=== PATIENT | male | born 1945 | race Caucasian/White ===

== ENCOUNTER → 2019-02-16 10:49 | Outpatient (BNVA) | payer MEDICARE, SELFPAY | PROVIDERS: Family Provider Nurse Practitioner Family; PCP Nurse Practitioner Family; Visit Provider Nurse Practitioner Family | DX: E11.9 Type 2 diabetes mellitus without complications (principal); R79.0 Abnormal level of blood mineral | CPT/HCPCS: 80053; 80061; 83036; 83735; 85025 ==

== ENCOUNTER 2019-07-24 19:37 | Emergency (ER) | payer MEDICARE, SELFPAY ==
[2019-07-24 20:00] VITALS: BP 112/66; PULSE 104; RESP 18; TEMP 36.4; O2SAT 93; BMI 34.9
[2019-07-24 21:28] VITALS: BP 125/69; PULSE 92; RESP 18; O2SAT 96
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
[2019-07-24] MEDS: dexamethasone 4 mg Tablet 8 MG PO (21:45)
[2019-07-24] MEDS: doxycycline 100 mg Tablet PO (21:45)
[2019-07-24 21:51] LABS: Basophils # 0.1 10^3/uL (0.0-0.1); Basophils % 0.5 %; Eosinophils # 0.8 10^3/uL (0.0-0.8); Eosinophils % 8.3 %; Hematocrit 39.7 % (42.0-52.0); Hemoglobin 12.5 g/dL (11.7-16.6); Lymphocytes # 2.6 10^3/uL (0.8-4.8); Lymphocytes % 28.7 %; Mean Corpuscular HGB Conc 31.5 g/dL (30.0-36.0); Mean Corpuscular Hemoglobin 30.6 pg (28.0-34.0); Mean Corpuscular Volume 97.1 fL (80-94); Mean Platelet Volume 9.8 fL (7.4-10.4); Monocytes % 11.3 %; Neutrophils # 4.6 10^3/uL (1.8-7.7); Neutrophils % 50.8 %; Nucleated Red Blood Cells % 0 %; Platelet Count 325 10^3/cmm (130-400); Red Blood Count 4.09 10^6/uL (4.1-5.3); Red Cell Distribution Width 13.2 % (12.1-15.1); White Blood Count 9.1 10^3/uL (4.0-10.0)
[2019-07-24 21:56] VITALS: BP 127/77; PULSE 88; RESP 18; O2SAT 94
[2019-07-27 13:47] LABS: Lyme AB Screen <0.90 index
[2019-08-02 06:53] LABS: E. Chaffeensis AB IGG <1:64; E. Chaffeensis AB IGM <1:20; RMSF IGG DETECTED; RMSF IGM NOT DETECTED
== END 2019-07-24 21:58 | disposition home or self-care (01) ==
PROVIDERS: Emergency Provider Emergency Medicine; PCP Nurse Practitioner Family
DX: S90.465A Insect bite (nonvenomous), left lesser toe(s), initial encounter (principal); W57.XXXA Bitten or stung by nonvenomous insect and other nonvenomous arthropods, initial encounter; Z79.82 Long term (current) use of aspirin; E11.9 Type 2 diabetes mellitus without complications; I10 Essential (primary) hypertension; E78.2 Mixed hyperlipidemia
CPT/HCPCS: 12345; 85025; 86618; 86666; 86757; 99282; 99283; J8540

== ENCOUNTER → 2020-10-08 13:26 | Outpatient (BNVA) | payer MEDICARE, SELFPAY | PROVIDERS: PCP Nurse Practitioner Family; Visit Provider Internal Medicine | DX: Z01.812 Encounter for preprocedural laboratory examination (principal); Z20.822 Contact with and (suspected) exposure to COVID-19 | CPT/HCPCS: 87635 ==

== ENCOUNTER 2020-10-12 07:48 | Day surgery (SDC) | payer MEDICARE, SELFPAY ==
[2020-10-09 14:22] VITALS: BMI 25.0
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
[2020-10-12 08:45] VITALS: BP 109/76; PULSE 93; RESP 18; TEMP 36.3; O2SAT 96
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
[2020-10-12] MEDS: sodium chloride 0.9% 1,000 ML 30 ML IV (09:22)
[2020-10-12 10:08] VITALS: BP 116/73; PULSE 104; RESP 18; TEMP 36.6; O2SAT 94
--- NOTE | 2020-10-12 10:30 | CT_ITS ---
WS: [id number] CT CHEST, ABDOMEN AND PELVIS WITH CONTRAST HISTORY: GE JUNCTION MASS TECHNIQUE: Contiguous 5 mm axial imaging performed through the chest, abdomen and pelvis with IV cont rast, oral contrast has been provided. Coronal and sagittal reformats chest. Coronal and sagittal ref ormats through the abdomen and pelvis. All CT scans at [facility] use at least one of these d ose optimization techniques: automated exposure control; mA and/or kV adjustment per patient size (in cludes targeted exams where dose is matched to clinical indication); or iterative reconstruction. CONTRAST: Omnipaque 300; 95 mL IV. DLP: 1333.07 mGy.cm COMPARISON: None available. Chest CT: No pneumonia or pulmonary nodules. There are a few micronodules which are less than 3 mm th roughout the lungs. These are very nonspecific and likely postinflammatory. Normal size pulmonary art erendira. Mild atherosclerosis of the aorta. Focal area of distal esophageal wall thickening extends over length of 3.7 cm. This begins below the karl. Asymmetric wall thickening, greatest on the LEFT mauri uring 2.0 cm in diameter. The lumen is narrowed and eccentrically positioned but not obstructed. Ther e are a few adjacent mediastinal and hilar lymph nodes which are less than 10 mm. 10 mm RIGHT axillar y lymph node. Abdomen CT: Liver is normal size. Normal bile ducts. Portal vein is patent. Gallbladder is normal. No rmal pancreas and spleen. No adrenal mass. There is mild hyperplasia of the LEFT adrenal gland. No re nal mass or obstruction. Mild atherosclerosis aorta with no aneurysm. Increased air throughout the colon is probably from a recent colonoscopy. No wall thickening or perfo ration. Normal appendix. Mild asymmetric thickening of the rectal wall. There is soft tissue thickeni ng on the LEFT measuring up to 1.5 cm. No ascites or enlarged lymph nodes. There are a few very small shoddy lymph nodes at the GE junction which are less than a centimeter. Pelvic CT: Well-distended urinary bladder. Mild prostate gland enlargement. No adenopathy in the pelv is. No free fluid. No inguinal lymph nodes. No osteoblastic or osteolytic bone disease. Prior fracture with healing LEFT inferior pubic rami. CT/CT chest abd pel w con* IMPRESSION: 1. Distal esophageal wall thickening highly suspicious for neoplasm. Esophagea l abnormality extends over a length of 3.7 cm with eccentric thickening of the wall greatest on the LEFT at 2.0 cm. 2. Eccentric rectal wall thickening, greatest on the LEFT measuring up to 1.5 cm. Correlate for possible rectal mass. 3. No metastatic disease to the liver, adrenal glands or lungs. 4. There are a few mildly prominent lymph nodes within the mediastinum and GI junction but these are not significantly enlarged as per criteria.
[2020-10-12 11:09] VITALS: BP 134/85; PULSE 91; RESP 16; O2SAT 97
[2020-10-12] MEDS: iohexol 300 mg/mL 50 mL Btl PO (11:11)
--- NOTE | 2020-10-12 11:15 | USCV_ITS ---
Kathya Wu Age: 75 Gender: M : 1945 Exam Date: 10/12/2020 11:24 Ordering Phys: Luis Barraza MD Technologist: Cookie Robertson [place] [facility] [place]ication: GI VEIN ACCESS Conclusions Bilateral UE Ultrasound for venous access Molina Tinoco MD (Electronically Signed) Final Date: 17 October 2020 09:59 S
[2020-10-12] MEDS: iodixanol 320 mg/mL 100mL Btl IV (12:20)
--- NOTE | 2020-10-12 15:57 | ANE.PACU2 ---
Inpatient post-anesthesia follow up: Airway intact: Yes Vital signs: Temperature 98 F Pulse Rate 91 Respiratory Rate 16 Blood Pressure 134/85 Pulse Oximetry 97 Oxygen Delivery Me thod Room Air Oxygen Flow Rate Fraction of Inspir ed Oxygen Hydration adequate: Yes Nausea and vomiting: No Pain level: 2 Mental status: Baseline
[2020-10-14 07:56] LABS: Glucose Point of Care 99 mg/dL (70-110)
[2020-10-22 07:02] LABS: Miscellaneous Test See Scanned Lab Rpt
== END 2020-10-12 12:46 | disposition home or self-care (01) ==
PROVIDERS: PCP Nurse Practitioner Family; Visit Provider Internal Medicine
PROC: 0DJ08ZZ Inspection of Upper Intestinal Tract, Via Natural or Artificial Opening Endoscopic (ICD-10-PCS; CPT 43235; principal; 2020-10-12 09:00)
DX: R13.10 Dysphagia, unspecified (principal); Z79.82 Long term (current) use of aspirin; E11.649 Type 2 diabetes mellitus with hypoglycemia without coma; I10 Essential (primary) hypertension; E78.2 Mixed hyperlipidemia; E11.40 Type 2 diabetes mellitus with diabetic neuropathy, unspecified; Z87.11 Personal history of peptic ulcer disease; Z98.1 Arthrodesis status; Z87.891 Personal history of nicotine dependence
CPT/HCPCS: 36416; 43239; 71260; 74177; 76937; 76942; 82962; 88305; 96360; 96361; J2704; J7030; Q9967

== ENCOUNTER 2020-10-22 13:59 | Outpatient (CLI) | payer MEDICARE, SELFPAY ==
--- NOTE | 2020-10-22 16:58 | ONC CON_ITS ---
Dr. Mirza New Patient Note Patient: Kathya Wu Unit #: [id number]: 1945 Dicatated By: Khloe Mirza M.D.Date of Visit: Oct 22, 2020 Onc MED New Patient/Consult Referring Physician: Dr. Efrain Barraza M.D. History of Present Illness: Mr. Kathya Wu, is a 75-year-old gentleman with about 2 months history of progressive dysphagia, underwent EGD on October 12, 2020 which showed at the esophageal cardia, is severe, malignant appearing, intrinsic stenosis noted, the stenosis was not traversed. A partially obstructing, large sized, friable, fungating, circumferential ulcerated mass was seen and a biopsy was obtained which confirmed invasive squamous cell carcinoma, patient underwent CT scan of chest abdomen pelvis on October 12, 2020 which showed distal esophageal wall thickening highly suspicious for neoplasm. And this extends over the length of 3.7 cm with eccentric thickening of the wall greatest on the left at 2 cm. And also noted eccentric rectal wall thickening, greatest on the left measuring up to 1.5 cm. Correlate for possible rectal mass, no metastatic disease to the liver or adrenal gland or lungs. There are few mildly prominent lymph nodes within the mediastinum and GE junction but these are not significantly enlarged as per the criteria. As per patient he underwent colonoscopy in 2018, it was unremarkable Patient has 40+ year history of smoking about pack a day and quit about 10 years ago patient also has history of alcohol abuse and now follow alcohol [employer], quit alcohol about 4 years ago No family history of GI malignancy. Patient also has history of iron deficiency in the recent past as per patient he was prescribed oral iron, which he could not tolerate and stopped taking. Patient denies any hemoptysis or hematemesis, denies any melena or hematochezia except history of dark-colored stools when he was on oral iron. Denies any history of jaundice denies any history of aspirations, denies any history of aspiration pneumonia. Denies any history of progressive shortness of breath. But patient said he has lost about 20 pounds over the. Of 2 months because of progressive dysphagia and now can tolerate liquids only and his past medical history significant for diabetes and he is on Metformin for that. Past Medical History: Mr. Hines medical history consists of acquired deformity of right wrist, calcific tendonitis of left shoulder, cervical disc disorder with myelopathy of mid cervical regio, hyperlipidemia, hypertension, lumbar spinal stenosis, peptic ulcer disease, peripheral neuropathy, and type II diabetes. COVID VACCINE #1 04/2020, VACCINE #2 05/2020. Past Surgical History: Mr. Hines surgical/procedural history consists of cervical spine surgery C3-C4 in 2016, right carpal tunnel release in 2016, left arm surgery in 1971, and right wrist surgery in 1971. Medications: A Thru Z Advanced 1 Tablet Oral daily, Alph-E 1 Capsule (of 400 Unit(s)) Oral daily, Aspirin 81 1 Tablet (of 81 mg) Tablet, chewable Oral daily, Atorvastatin Calcium 1 Tablet (of 20 mg) Oral daily, Cholecalciferol 1 Capsule (of 25 mcg ) Oral daily, Gabapentin 1 Capsule (of 100 mg) Oral b.i.d., glipiZIDE ER 1 Tablet (of 2.5 mg) Tablet SR 24 HR Oral daily, Glucophage 1 Tablet (of 1000 mg) Oral b.i.d., Lisinopril-hydroCHLOROthiazide 1 Tablet (of 20-12.5 mg) Oral daily, Magnesium 1 Tablet (of 250 mg) Oral b.i.d., Pantoprazole Sodium 1 Tablet (of 40 mg) Tablet, enteric coated Oral daily, traMADol HCl 1 Tablet (of 50 mg) Oral PRN, Zofran ODT 1 Tablet (of 8 mg) Tablet Dispersable Oral PRN Allergies: No Known Allergies. Social History: Mr. Wu is . Mr. Wu has never smoked. He has no history of drinking. Family History: Mr. Dunns mother at age 98. Mr. Wu's father at age 73. Mr. Wu has 1 brother who is . He has 1 sister who is . Review Of Symptoms: Review of Systems is not available for this patient. Vital Signs: Performed on Oct 22, 2020 15:15: 2, 24.37, 1.82 sq.m, 67 in, 95 % (LOW), 85 /min, 18 /min, 102/65 mm(hg), 97.0 F (LOW), and 155.6 lbs (HIGH). Performance Status: 0 - Fully active, able to carry on all predisease activities without restrictions. (ECOG) Physical Examination: ENMT - No mouth sores, no thrush, no jaundice no cervical or supraclavicular lymphadenopathy, Respiratory - Lungs are clear to auscultation, Cardiovascular - Regular rate and rhythm of heart, Abdomen - Soft, bowel sounds present, Extremities - No visible edema or rash. Lab/Imaging: Most recent lab results are not available for this patient. 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 Eccentric rectal wall thickening, greatest on the left measuring 1.5 cm, correlate for possible rectal mass. No metastatic disease to the liver or lungs or adrenal gland. There are a few mildly prominent lymph nodes within the mediastinum and GE junction but these are not significantly enlarged as per criteria. Progressive dysphagia/weight loss, scan due to above Diabetes, on oral hypoglycemic 40+ year history of heavy smoking, at least 1 pack/day, quit about 10 years ago. History of alcohol abuse, quit 4 years ago now follow alcohol Anonymous Plan: Discussed with patient regarding his EGD report and pathology which showed invasive squamous cell carcinoma involving distal esophageal area and patient is symptomatic due to progressive dysphagia, now J-tube is under consideration, patient is scheduled to see Dr. Lee in the morning., His CT scan of chest abdomen pelvis showed distal esophageal wall thickening and there are few mildly prominent lymph nodes in mediastinum and GE junction but these are not significantly large as per criteria but no evidence of metastatic disease to the liver or adrenal gland or lungs but there is a concern about rectal mass/wall thickening, as per patient he had follow-up colonoscopy done in 2018 and he was told it was unremarkable. So we will request Dr. Barraza to consider hydrogen limited colonoscopy or sigmoidoscopy or proctoscopy and correlate with CT scan of abdomen pelvis done on October 12, 2020.And also request surgery for Port-A-Cath placement to facilitate systemic therapy We will also order CT PET scan to complete staging work-up and if it shows no evidence of distant mets, will consider neoadjuvant therapy with combined chemoradiation with weekly carboplatin/Taxol followed by referrel to surgery for evaluation. We will also obtain baseline CBC and CMP, as per patient he has history of iron deficiency anemia, if he has persistent iron deficiency anemia will consider parenteral iron. Patient will return to clinic after follow-up CT PET scan in the meantime we will also refer him to radiation oncology for evaluation. Signed By: Khloe Mirza M.D. <<Signature on File>>
== END 2020-10-22 14:00 | disposition home or self-care (01) ==
LOC: ONCMED 14:07
PROVIDERS: PCP Nurse Practitioner Family; Visit Provider Internal Medicine Hematology & Oncology
DX: C15.5 Malignant neoplasm of lower third of esophagus (principal); R13.10 Dysphagia, unspecified; Z87.891 Personal history of nicotine dependence; E11.9 Type 2 diabetes mellitus without complications; Z79.82 Long term (current) use of aspirin; Z79.899 Other long term (current) drug therapy; Z79.84 Long term (current) use of oral hypoglycemic drugs
CPT/HCPCS: 99205

== ENCOUNTER 2020-10-23 09:17 | Outpatient (CLI) | payer MEDICARE, SELFPAY ==
[2020-10-23 15:24] LABS: Basophils # 0.1 10^3/uL (0.0-0.1); Basophils % 0.6 %; Eosinophils # 0.4 10^3/uL (0.0-0.8); Eosinophils % 3.1 %; Hematocrit 34.1 % (42.0-52.0); Hemoglobin 10.7 g/dL (11.7-16.6); Lymphocytes # 2.3 10^3/uL (0.8-4.8); Lymphocytes % 19.8 %; Mean Corpuscular HGB Conc 31.4 g/dL (30.0-36.0); Mean Corpuscular Hemoglobin 28.1 pg (28.0-34.0); Mean Corpuscular Volume 89.5 fl (80-94); Mean Platelet Volume 9.9 fL (7.4-10.4); Monocytes % 8.4 %; Neutrophils # 7.98 10^3/uL (1.8-7.7); Neutrophils % 67.7 %; Nucleated Red Blood Cells % 0 %; Platelet Count 552 10^3/cmm (130-400); Red Blood Count 3.81 10^6/uL (4.1-5.3); Red Cell Distribution Width 13.7 % (12.1-15.1); White Blood Count 11.8 10^3/uL (4.0-10.0)
[2020-10-23 15:58] LABS: Albumin Level 4.2 g/dL (3.5-5.2); Alkaline Phosphatase 75 IU/L (40-130); Chloride 91 mmol/L (98-107); Potassium 5.7 mmol/L (3.5-5.1); Sodium 128 mmol/L (136-145)
[2020-10-23 16:19] LABS: Alanine Aminotransferase 7 U/L (0-41); Anion Gap 19.7 (5-19); Aspartate Amino Transferase 12 U/L (0-40); Blood Urea Nitrogen 24 mg/dL (8-23); Calcium 9.6 mg/dL (8.5-10.5); Carbon Dioxide 23 mmol/L (22-29); Globulin 2.8 g/dL (1.3-4.6); Glucose 80 mg/dL (65-115); Osmolality Calculated 269 mOsm/kg (285-295); Total Bilirubin 0.3 mg/dL (0.15-1.2)
[2020-10-23 17:17] LABS: Ferritin 259 ng/mL (30-400); Iron 33 ug/dL (59-158); Percent Saturation 11.3 % (20-50); Total Iron Binding Capacity 292 mcg/dl; Unsaturated Iron Binding 259 ug/dL (112-347); Vitamin B12 1941 pg/mL (232-1245)
== END 2020-10-23 09:18 | disposition home or self-care (01) ==
LOC: ONCMED 09:40
PROVIDERS: PCP Nurse Practitioner Family; Visit Provider Internal Medicine Hematology & Oncology
DX: D50.9 Iron deficiency anemia, unspecified (principal); C15.5 Malignant neoplasm of lower third of esophagus; E11.9 Type 2 diabetes mellitus without complications
CPT/HCPCS: 36415; 80053; 82607; 82728; 83540; 83550; 85025

== ENCOUNTER → 2020-10-26 10:07 | Outpatient (BNVA) | payer MEDICARE, SELFPAY | PROVIDERS: PCP Nurse Practitioner Family; Visit Provider Surgery | DX: Z20.822 Contact with and (suspected) exposure to COVID-19 (principal) | CPT/HCPCS: 87635 ==

== ENCOUNTER 2020-10-31 11:39 | Day surgery (SDC) | payer MEDICARE, SELFPAY ==
[2020-10-30 13:28] VITALS: BMI 23.6
--- NOTE | 2020-10-31 | SCC_ITS ---
Procedure Done: 1. Flexible sigmoidoscopy without biopsy 2. Placement of PowerPort in the left subclavian vein 3. Fluoroscopic guidance and interpretation for placement of catheter - seconds of fluoroscopic guidance, for a cumulative dose of 3.61 mGy, was provided to Dr. Lee by the radiology department. C-arm images of the chest were saved for the patient's permanent record. [facility]
--- NOTE | 2020-10-31 11:33 | W.PM.OPSUD ---
Surgery/Procedure H&P Update DATE OF PROCEDURE: October 31, 2020 DATE H&P PERFORMED: 10/23/20 H&P UPDATE INFORMATION: I have reviewed H&P completed within last 30 days, I have examined patient prior to procedure and No changes to prior documentation PREOP DIAGNOSIS: dysphagia PLANNED PROCEDURE: Operation Date: 10/31/20 14:15 Proposed Procedures p Sigmoidoscopy 30301 [id number] K62.9 C15.4(Not Applicable) - Yrn Lee MD s Portacath Placement(Not Applicable) - Yrn Lee MD
[2020-10-31 12:21] VITALS: BP 107/60; PULSE 75; RESP 18; TEMP 36.5; O2SAT 95
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
--- NOTE | 2020-10-31 12:39 | SC_ITS ---
WS: [id number] INTRAOPERATIVE TECHNIQUE: 3 Spot fluoroscopic images for intraoperative purposes. FLUOROSCOPY TIME: 24.9 seconds CLINICAL INFORMATION: portacath placement COMPARISON: None. FINDINGS: Left Port-A-Cath with tip in the SVC. No visualized pneumothorax. SC/C-arm FL for CVA [id number] IMPRESSION: Images obtained for intraoperative purposes.
[2020-10-31 12:48] LABS: Glucose Point of Care 87 mg/dL (70-110)
[2020-10-31] MEDS: sodium chloride 0.9% 1,000 ML 30 ML IV (12:49)
[2020-10-31] MEDS: lidocaine 1% INJ 20 mL SUBCUT (13:30)
[2020-10-31] MEDS: heparin, porcine 1,000 unit/mL INJ 10 mL 10000 UNIT INJECTION (13:30)
[2020-10-31 13:54] VITALS: BP 92/53; PULSE 80; RESP 20; TEMP 36.1; O2SAT 93
[2020-10-31 14:00] VITALS: BP 90/65; PULSE 76; RESP 17; O2SAT 95
--- NOTE | 2020-10-31 14:03 | ANE.PACU2 ---
Inpatient post-anesthesia follow up: Airway intact: Yes Vital signs: Temperature 97.7 F Pulse Rate 75 Respiratory Rate 18 Blood Pressure 107/60 Pulse Oximetry 95 Oxygen Delivery Me thod Room Air Oxygen Flow Rate Fraction of Inspir ed Oxygen Hydration adequate: Yes Nausea and vomiting: No Pain level: 2 Mental status: Baseline
[2020-10-31 14:05] VITALS: BP 91/60; PULSE 71; RESP 17; TEMP 36.6; O2SAT 92
[2020-10-31 14:08] VITALS: BP 89/42; PULSE 74; RESP 18; O2SAT 97
--- NOTE | 2020-10-31 14:09 | PM.OP ---
Operative Report Date of procedure: October 31, 2020 Pre-op Diagnosis: 1. Rectal wall thickening on CT scan 2. Esophageal cancer requiring central venous access for chemotherapy Post-op Diagnosis: 1. Diverticulosis sigmoid colon, no rectal masses 2. Esophageal cancer requiring central venous access for chemotherapy Procedure Done: 1. Flexible sigmoidoscopy without biopsy 2. Placement of PowerPort in the left subclavian vein 3. Fluoroscopic guidance and interpretation for placement of catheter Pathology: none sent Surgeon: Yrn Lee Anesthesia: General Condition: stable Disposition: PACU Procedure: The patient was taken to the operating room and placed in left lateral position under MAC. JOANNA was normal. A colonoscope was introduced and advanced up to the splenic flexure. There was mild diverticulosis noted in the sigmoid colon. There were no masses noted in the rectum. The colonoscope was withdrawn. The patient was taken to the Operating Room and the chest and neck bilaterally were prepped and draped in a sterile manner after the antibiotic had been administered and shoulder rolls had been placed. A total of 10 mL of 1% lidocaine with 0.5% Marcaine was infiltrated under the clavicle on the left side at the site of the planned entry into the subclavian vein. An introducer needle was then used to access the subclavian vein under the clavicle and after withdrawing blood syringe was removed and a guidewire passed under fluoroscopy into the superior vena cava. The site of the planned port was then marked on the chest and a 15 blade was used to make a 3 cm skin incision this was extended into the subcutaneous tissue using electrocautery and a subcutaneous pocket over the pectoralis fascia was created 2-0 Vicryl suture was used to suture the port to the pectoral fascia in the pocket on 3 sides. The catheter, after having been flushed with hep saline, was attached to the tunneler and a tunnel created between the port site and the subclavian vein entry site. Under fluoroscopy the dilator sheath was passed over the guidewire into the proximal superior vena cava. The inner dilator was removed and the sheath left behind and~ the catheter was introduced through the peel-away sheath with the tip in the superior vena cava. The peel-away sheath was removed. The proximal end of the catheter was cut to the right size and was attached to the port. Using a Sevilla needle the port was accessed, it withdrew blood easily and flushed easily. A final 5cc of heparin was used to flush the PowerPort. The subcutaneous tissue was approximated using interrupted 3-0 Vicryl sutures and the skin at the introducer site and the port site was closed using subcuticular running 4-0 Monocryl sutures. Surgical glue was applied and the patient was stable throughout the procedure. Fluoroscopic guidance and interpretation was performed for introduction of the guidewire in the left subclavian vein, passage of dilator and placement of catheter tip in the distal superior vena cava.
[2020-10-31 14:31] VITALS: BP 98/56; PULSE 75; RESP 18; O2SAT 95
== END 2020-10-31 14:44 | disposition home or self-care (01) ==
PROVIDERS: PCP Nurse Practitioner Family; Visit Provider Surgery
PROC: 0DJD8ZZ Inspection of Lower Intestinal Tract, Via Natural or Artificial Opening Endoscopic (ICD-10-PCS; CPT 45330; principal; 2020-10-31 14:10)
PROC: (CPT 36561; 2020-10-31 14:10)
DX: R93.3 Abnormal findings on diagnostic imaging of other parts of digestive tract (principal); C15.9 Malignant neoplasm of esophagus, unspecified; K57.30 Diverticulosis of large intestine without perforation or abscess without bleeding; I10 Essential (primary) hypertension; K21.9 Gastro-esophageal reflux disease without esophagitis; M19.90 Unspecified osteoarthritis, unspecified site; E11.649 Type 2 diabetes mellitus with hypoglycemia without coma; E78.2 Mixed hyperlipidemia; E11.40 Type 2 diabetes mellitus with diabetic neuropathy, unspecified; Z87.11 Personal history of peptic ulcer disease; Z98.1 Arthrodesis status; Z87.891 Personal history of nicotine dependence; Z79.84 Long term (current) use of oral hypoglycemic drugs; E46 Unspecified protein-calorie malnutrition; Z68.23 Body mass index [BMI] 23.0-23.9, adult
CPT/HCPCS: 36561; 45330; 36416; 77001; 82962; C1788; J0690; J1644; J2704; J3010; J3490; J7030

== ENCOUNTER 2020-11-14 08:32 | Outpatient (CLI) | payer MEDICARE, SELFPAY ==
--- NOTE | 2020-11-14 09:54 | N.ONRAD NP_ITS ---
Radiation Oncology Consultation Patient Name: Kathya Wu Date of : 1945 Date of Service: 11/14/2020 Attending Physician: Esvin Patel M.D. Kathya Wu was seen in consultation this morning at the request of Amna Mirza M.D. for neoadjuvant radiotherapy for the management of a recently diagnosed distal esophageal cancer. He presented to his primary care physician in September with the complaint of dysphagia and a 20 pound weight loss. An esophagogastroduodenoscopy was performed by Luis Barraza M.D on October 12, 2020. A malignant appearing stricture was identified at the esophageal cardia. 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 A thoracoabdominopelvic CT scan ordered on October 12, 2020 demonstrated distal esophageal wall thickening extending 3.7 cm in length with eccentric thickening of the left esophageal wall measuring 2 cm. Also described was asymmetric rectal wall thickening. A sigmoidoscopy did not identify any abnormalities. A PET CT (independently visualized in [facility]) completed on November 10, 2020 revealed the previously described distal thoracic esophageal mass (SUV 17.9) and two hypermetabolic lesions in the right ischium and left proximal femur. I will order a biopsy to confirm metastatic disease with treatment recommendations contingent upon the results. The patient's treatment plan was discussed with Amna Mirza M.D. Signed by: Dr. Esvin Patel 11/14/2020 9:53:17 AM
== END 2020-11-14 08:33 | disposition home or self-care (01) ==
LOC: ONCMED 08:35
PROVIDERS: PCP Nurse Practitioner Family; Visit Provider Radiology Radiation Oncology
DX: C15.5 Malignant neoplasm of lower third of esophagus (principal); R13.19 Other dysphagia; R63.4 Abnormal weight loss; Z79.899 Other long term (current) drug therapy
CPT/HCPCS: 99205

== ENCOUNTER 2020-11-16 10:32 | Inpatient (IN) | payer MEDICARE, SELFPAY ==
[2020-11-16 10:48] VITALS: BP 101/65; PULSE 92; RESP 15; O2SAT 95; BMI 24.3
--- NOTE | 2020-11-16 11:39 | CT_ITS ---
WS: [id number] CT CHEST, ABDOMEN, AND PELVIS TECHNIQUE: Contrast-enhanced CT of the chest, abdomen, and pelvis with coronal and sagittal reformatt ed images. CLINICAL INFORMATION: hx esophogeal mass, dysphagia COMPARISON: PET/CT November 10, 2020 DLP: 1142.[address] scans at [facility] use at least one of these dose optimization techniques: automated e xposure control; mA and/or kV adjustment per patient size (includes targeted exams where dose is matc hed to clinical indication); or iterative reconstruction. CT CHEST: Again seen is diffuse circumferential thickening of the distal thoracic esophagus compatible with kno wn FDG avid esophageal carcinoma as seen on the recent PET/CT. Standing column of contrast within the thoracic esophagus. Apparent severe narrowing at the GE junction. No significant oral contrast passe s into the stomach. Both lungs are well aerated. No suspicious pulmonary parenchymal opacities. No focal pneumonia or ple ural fluid. No mediastinal or hilar lymphadenopathy. Normal caliber thoracic aorta. No axillary lymph adenopathy. Slightly prominent right axillary lymph node FDG negative on the recent PET/CT. CT ABDOMEN AND PELVIS: Tiny FDG avid right ischial lesion better seen on the PET/CT. Diffuse fatty infiltration of the liver . Normal gallbladder. Fatty atrophy of the pancreas. Adrenal glands are normal. Nodular thickening le ft adrenal gland. Normal renal parenchymal enhancement. No hydronephrosis. Normal caliber abdominal a hannah. Aortic calcification. Enlarged prostate. No evidence of small or large bowel obstruction. No periaortic or retroperitoneal lymphadenopathy. No inguinal lymphadenopathy. Slight anterolisthesis L2 on L3. CT/CT chest abd pel w con* IMPRESSION: 1. Diffuse circumferential soft tissue thickening distal thoracic esophagus wi th luminal narrowing at the GE junction compatible with known esophageal carcin keith unchanged since the recent PET/CT. 2. High-grade narrowing at the GE junction with no significant passage of cont rast. Standing column of contrast in the thoracic esophagus. 3. Lungs are well aerated. No suspicious pulmonary parenchymal opacities. 4. No mediastinal or hilar lymphadenopathy. 5. No suspicious findings in the abdomen or pelvis. Attempted notification Michael Gardiner DO at 11/16/2020 1:14 PM.
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
[2020-11-16 11:46] VITALS: BP 111/78; PULSE 88; RESP 16; O2SAT 93
[2020-11-16] MEDS: iohexol 300 mg/mL 100 mL Btl IV (12:52)
[2020-11-16] MEDS: sodium chloride 0.9% 1,000 ML 999 ML IV ×2 (13:00→18:53)
[2020-11-16 14:09] LABS: Basophils # 0.1 10^3/uL (0.0-0.1); Basophils % 0.6 %; Eosinophils # 0.1 10^3/uL (0.0-0.8); Eosinophils % 0.6 %; Hematocrit 36.2 % (42.0-52.0); Hemoglobin 11.2 g/dL (11.7-16.6); Lymphocytes # 1.7 10^3/uL (0.8-4.8); Lymphocytes % 12.3 %; Mean Corpuscular HGB Conc 30.9 g/dL (30.0-36.0); Mean Corpuscular Hemoglobin 28.6 pg (28.0-34.0); Mean Corpuscular Volume 92.3 fl (80-94); Mean Platelet Volume 9.6 fL (7.4-10.4); Monocytes # 0.8 10^3/uL (0.2-0.9); Monocytes % 5.9 %; Neutrophils # 11.18 10^3/uL (1.8-7.7); Neutrophils % 80.1 %; Nucleated Red Blood Cells % 0 %; Platelet Count 513 10^3/cmm (130-400); Red Blood Count 3.92 10^6/uL (4.1-5.3); Red Cell Distribution Width 13.9 % (12.1-15.1); White Blood Count 13.9 10^3/uL (4.0-10.0)
[2020-11-16 14:30] LABS: Alanine Aminotransferase 6 U/L (0-41); Albumin Level 4.5 g/dL (3.5-5.2); Alkaline Phosphatase 87 IU/L (40-130); Anion Gap 25.3 (5-19); Aspartate Amino Transferase 9 U/L (0-40); Blood Urea Nitrogen 26 mg/dL (8-23); Calcium 10.5 mg/dL (8.5-10.5); Carbon Dioxide 22 mmol/L (22-29); Chloride 95 mmol/L (98-107); Globulin 3.6 g/dL (1.3-4.6); Glucose 87 mg/dL (65-115); Osmolality Calculated 288 mOsm/kg (285-295); Potassium 5.3 mmol/L (3.5-5.1); Sodium 137 mmol/L (136-145); Total Bilirubin 0.3 mg/dL (0.15-1.2); Total Protein 8.1 g/dL (6.6-8.7)
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
[2020-11-16 18:52] VITALS: RESP 16
[2020-11-16] MEDS: morphine 4 mg/mL SDV 1 mL IVP (18:52)
[2020-11-16] MEDS: ondansetron 2 mg/ML SDV 2 mL 4 MG IVP (18:53)
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
[2020-11-16 20:00] VITALS: BP 114/66; PULSE 96; RESP 20; TEMP 37.2; O2SAT 94
[2020-11-16] MEDS: pantoprazole 40 mg SDV IVP (20:37)
[2020-11-16] MEDS: dextrose 5%-sod chloride 0.45% 1,000 ML 100 ML IV (20:37)
[2020-11-16 21:01] VITALS: RESP 16
[2020-11-16] MEDS: HYDROmorphone 1 mg/mL INJ 1 mL 0.4 MG IVP (21:01)
[2020-11-16 21:13] LABS: Glucose Point of Care 90 mg/dL (70-110)
[2020-11-16 23:54] VITALS: PULSE 87
[2020-11-17] VITALS (21 sets, daily range): BP systolic 87–130; BP diastolic 50–71; PULSE 61–104; RESP 16–29; TEMP 36.5–37.3; O2SAT 90–98
[2020-11-17 02:42] LABS: Glucose Point of Care 96 mg/dL (70-110)
[2020-11-17 05:06] LABS: Basophils # 0.1 10^3/uL (0.0-0.1); Basophils % 0.6 %; Eosinophils # 0.3 10^3/uL (0.0-0.8); Eosinophils % 2.3 %; Hematocrit 33.3 % (42.0-52.0); Lymphocytes # 2.2 10^3/uL (0.8-4.8); Lymphocytes % 17.5 %; Mean Corpuscular Hemoglobin 28.4 pg (28.0-34.0); Mean Corpuscular Volume 94.6 fl (80-94); Mean Platelet Volume 9.5 fL (7.4-10.4); Monocytes % 7.9 %; Neutrophils % 71.3 %; Nucleated Red Blood Cells % 0 %; Platelet Count 391 10^3/cmm (130-400); Red Blood Count 3.52 10^6/uL (4.1-5.3); Red Cell Distribution Width 13.9 % (12.1-15.1); White Blood Count 12.8 10^3/uL (4.0-10.0)
[2020-11-17 05:44] LABS: Alanine Aminotransferase < 5 U/L (0-41); Albumin Level 3.9 g/dL (3.5-5.2); Alkaline Phosphatase 66 IU/L (40-130); Aspartate Amino Transferase 10 U/L (0-40); Blood Urea Nitrogen 21 mg/dL (8-23); Calcium 9.9 mg/dL (8.5-10.5); Carbon Dioxide 25 mmol/L (22-29); Chloride 102 mmol/L (98-107); Glucose 92 mg/dL (65-115); Osmolality Calculated 291 mOsm/kg (285-295); Sodium 139 mmol/L (136-145); Total Bilirubin 0.3 mg/dL (0.15-1.2); Total Protein 6.9 g/dL (6.6-8.7)
[2020-11-17 06:02] LABS: Anion Gap 16.8 (5-19); Potassium 4.8 mmol/L (3.5-5.1)
[2020-11-17] MEDS: dextrose 5%-sod chloride 0.45% 1,000 ML 100 ML IV (06:16)
--- NOTE | 2020-11-17 07:51 | PC.NURSE ---
AT APPROX. 0715 PT TO GI LAB FOR PROCEDURE.
--- NOTE | 2020-11-17 08:03 | PM.PN ---
Subjective Subjective: Interval history: Patient denies any abdominal or chest pain Vitals/I&O/Wt Last Vital Signs Temp 97.7 F 11/17/20 07:20 Pulse 86 11/17/20 07:20 Resp 16 11/17/20 07:20 BP 98/61 11/17/20 07:20 Pulse Ox 92 11/17/20 07:20 11/16/20 11/17/20 11/17/20 22:59 06:59 14:59 Intake Total 1000 / 2965 965 / 2965 Output Total 350 / 350 Balance 1000 / 2615 615 / 2615 Weight last 48 hrs Weight 160 lb Physical Exam Narrative: EXAM NARRATIVE: Abdomen: Soft tender, nontender nondistended Data : 11/17/20 04:48 11/17/20 04:48 A&P Assessment and plan (1) Esophageal cancer: 76-year-old male with recently diagnosed esophageal cancer who is due to start chemoradiation since with esophageal obstruction. Plan for EGD to see if esophageal obstruction can be relieved if secondary to food bolus/pills. 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
--- NOTE | 2020-11-17 08:13 | SUR.PREOP ---
Dr Villa and Dr Lee both in to see pt. Consent signed. VSS Pt alert and oriented
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
[2020-11-17] MEDS: sodium chloride 0.9% 1,000 ML 30 ML IV (08:48)
[2020-11-17 11:21] LABS: Glucose Point of Care 110 mg/dL (70-110)
--- NOTE | 2020-11-17 12:41 | PM.PN ---
Subjective Subjective: Interval history: Post EGD, food bolus was retracted from esophagus during endoscopy, patient is tolerating liquid diet, plan to switch medications to liquid form if patient is tolerating diet okay without any recurrence abdominal pain, nausea or vomiting plan to discharge him tomorrow home Vitals/I&O/Wt Last Vital Signs Temp 98.6 F 11/17/20 10:10 Pulse 93 11/17/20 10:10 Resp 18 11/17/20 10:10 BP 100/67 11/17/20 10:10 Pulse Ox 92 11/17/20 10:10 11/16/20 11/17/20 11/17/20 22:59 06:59 14:59 Intake Total 999 965 / 2965 45 / 45 Output Total 350 / 350 0 / 0 Balance 999 615 / 2615 45 / 45 Weight last 48 hrs Weight 72.575 kg Physical Exam Narrative: EXAM NARRATIVE: Patient laying comfortably in his bed Saturating well on room air No audible stridor or wheezing No focal deficit S1, S2 Abdomen soft nontender Bowel sounds present No lower extremity edema Data : 11/17/20 04:48 11/17/20 04:48 A&P Assessment and plan (1) Esophageal cancer: Status: Acute (2) Dysphagia: Status: Acute Additional A&P Information Esophageal cancer Dysphagia Plan: Status post EGD, evacuation of impacted food in esophagus, currently patient is tolerating liquid diet, if there is no recurrence of symptoms plan to discharge him tomorrow, start Ensure diet We will keep him on clear liquids with Ensure for now Full code SCDs for DVT for now Attestations Medical Necessity Statement*: Anticipating discharge tomorrow Time Spent in Patient Care: 16 - 35 minutes Coding Level of Care Code Acute 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
[2020-11-17 17:10] LABS: Glucose Point of Care 212 mg/dL (70-110)
[2020-11-17] MEDS: HYDROmorphone 1 mg/mL INJ 1 mL 0.2 MG IVP (17:59)
[2020-11-17] MEDS: pantoprazole 40 mg SDV IVP (18:00)
[2020-11-17 22:01] LABS: Glucose Point of Care 163 mg/dL (70-110)
[2020-11-18] VITALS: BP 96/54; PULSE 84; RESP 18; TEMP 36.8; O2SAT 94
[2020-11-18 04:00] VITALS: BP 105/65; PULSE 83; RESP 18; TEMP 36.7; O2SAT 94
[2020-11-18 04:27] LABS: Glucose Point of Care 129 mg/dL (70-110)
[2020-11-18 07:59] VITALS: BP 106/67; PULSE 89; RESP 16; TEMP 36.7; O2SAT 90
[2020-11-18] MEDS: pantoprazole 40 mg SDV IVP (08:35)
--- NOTE | 2020-11-18 08:51 | P.PN_ITS ---
Subjective Subjective: Interval history: Patient tolerating clear liquid diet, denies any chest pain or abdominal pain Vitals/I&O/Wt Last Vital Signs Temp 98.1 F 11/18/20 07:59 Pulse 89 11/18/20 07:59 Resp 16 11/18/20 07:59 BP 106/67 11/18/20 07:59 Pulse Ox 90 11/18/20 07:59 11/17/20 11/18/20 11/18/20 22:59 06:59 14:59 Intake Total 2720 / 3005 Balance 2720 / 3005 Weight last 48 hrs Weight 160 lb Physical Exam 2 Narrative: EXAM NARRATIVE: Abdomen: Soft Data : 11/17/20 04:48 11/17/20 04:48 A&P Assessment and plan (1) Esophageal cancer: Overall doing well, tolerating clear liquid diet Advised to stay on a clear liquid diet on discharge Follow-up with Dr. 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
[2020-11-18 09:22] VITALS: PULSE 86; RESP 17; O2SAT 92
[2020-11-18 09:52] LABS: Glucose Point of Care 162 mg/dL (70-110)
--- NOTE | 2020-11-18 11:31 | P.DS_ITS ---
Discharge Providers Date of Admission: 11/16/20 17:21 Date of Discharge: November 18, 2020 Attending Provider at Admission: Luis Ennis MD Attending Provider at Discharge: Luis Ennis MD Primary Care Provider: Jennie Whiteside APN Diagnoses at Discharge Discharge Diagnosis (1) Esophageal cancer: Status: Acute Reason for Visit Reason for Visit: Unable to swallow & keep water down, sent by [facility] Hospital Course Hospital Course History of Present Illness Kathya Wu is a 75 year old male who was diagnosed with invasive squamous cell carcinoma, patient suffered from dysphagia in September when he was unable to eat solid food, this was associated 20 pound weight loss, esophagogastroduodenoscopy which was done by Dr. Barraza on October 12 showed a malignant appearing mass, recent PET scan is showing increased uptake in sacral and left femur area, patient presented today with chief complaint of recurrent nausea and vomiting. Patient is stating that his last proper meal was about 3 months ago, he has been tolerating liquid diet for last few weeks, for the last few days he has not been able to even swallow his tablets, he is bringing up sip of water that he takes as well, not able to swallow anything now. No fever or night sweats endorsing significant weight loss. His case was presented to [facility] for stent placement in the distal esophagus, he was not accepted by the machine set up technician because of DVT related to his treatment plan and recent diagnosis of metastatic lesions. Dr. Lee and Dr. Mirza were contacted by the ER physician who recommended admission to the hospitalist team and plan for J-tube placement in the morning. Hospital course Patient underwent EGD next day, EGD report is pending however as per my discussion with Dr. Lee, a large food bolus was removed at distal part of the esophagus. Patient tolerated liquid diet afterwards, no recurrence of nausea, vomiting, abdominal pain. Patient was not endorsing any pain or dysphagia to liquid diet anymore. He was happy with his results. He remains in good spirits and wants to follow-up with his PCP to decide about converting his medications to liquid form. He is planning to use Glucerna liquid diet. He will follow up with Dr. Mirza outpatient. Physical Exam Narrative: EXAM NARRATIVE: male who appears stated age Does not look dehydrated In good spirits No focal deficit ER, PERRLA S1, S2 Abdomen soft Tolerating liquid diet No audible stridor or wheezing saturating well on room air Discharge Data Data Completed and Pending: Completed Studies During Hospitalization Category Date Time Status CT chest abd pel w con* Stat Cat Scan 11/16/20 11:39 Completed Labs from last 24 hours 11/18/20 11/18/20 11/17/20 09:49 03:52 21:47 POC Glucose 162 H 129 H 163 H 11/17/20 17:05 POC Glucose 212 H Vitals: Last Vital Signs Temp 98.1 F 11/18/20 07:59 Pulse 86 11/18/20 09:22 Resp 17 11/18/20 09:22 BP 106/67 11/18/20 07:59 Pulse Ox 92 11/18/20 09:22 Discharge Plan Discharge Patient Disposition: Home Condition: Stable Prescriptions: Continued tramadol 50 mg tablet 50 mg PO BID PRN (Reason: Pain) RF: 0 metformin 500 mg tablet 1,000 mg PO BID RF: 0 gabapentin 100 mg capsule 100 mg PO BID RF: 0 (DME) lancets [Accu-Chek Fastclix Lancet Drum] Misc See Rx Instructions .ROUTE .MEDSUPPLY Qty: 50 RF: 0 (DME) Accu-Chek SmartView Test Strip Strip See Rx Instructions .ROUTE .MEDSUPPLY Qty: 10 RF: 0 atorvastatin 20 mg tablet 20 mg PO DAILY RF: 0 lisinopril-hydrochlorothiazide 20-12.5 mg tablet 1 tab PO DAILY RF: 0 glipizide 2.5 mg tablet extended release 24hr 2.5 mg PO DAILY RF: 0 ondansetron HCl [Zofran] 4 mg tablet 4 mg PO Q6H PRN (Reason: nausea and vomiting) Qty: 20 RF: 0 pantoprazole 40 mg tablet,delayed release (DR/EC) 40 mg PO DAILY RF: 0 Discharge Orders: Discharge Order (Routine); Ordered 11/18/20 Ordered By: Luis Ennis Discharge Diet: Full LIquid Discharge Activity: Increase activity as tolerated Patient Instructions: Opioid Safety Activity Restrictions/Additional Instructions: Please take liquid form of medications, you have decided to follow-up with your PCP and convert your pills to liquid form If there is no liquid form available please crush her medications You will stay on liquid diet, you can use Glucerna for history of diabetes Please follow-up with your PCP and oncologist Discharge Attestations Time Spent in Discharge Care*: less than 30 min Quality Metrics Clinical Quality Measures During this hospital stay, did patient experience: None Coding Level of Care Code Acute Chg FW DC note Diagnoses Esophageal cancer C15.9
[2020-11-18 12:00] VITALS: BP 116/67; PULSE 89; RESP 16; TEMP 36.7; O2SAT 96
--- NOTE | 2020-11-18 13:23 | PC.NURSE ---
DISCHARGE INSTRUCTIONS DISCHARGE INSTRUCTIONS GIVEN PER THIS NURSE - PT VERBALIZES UNDERSTANDING
[2020-11-18 14:20] VITALS: BP 116/67; PULSE 89; RESP 16; TEMP 36.7; O2SAT 96
--- NOTE | 2020-11-21 15:30 | PC.SOCIAL ---
discharge follow up call made, spoke with patient. patient reports is he feeling good. patient continues on liquid diet. patient has follow up appointment with dr. srinivasan, radiation oncologist tomorrow and will schedule a follow up with his pcp. patient is getting medications changed to liquid if possible. patient is taking glucerna tid. patient denies any questions or concerns.
== END 2020-11-18 14:20 | disposition home or self-care (01) | DRG 375 ==
LOC: ER 17:08 → MEDSURG 18:38
PROVIDERS: Surgery; Admitting Provider Internal Medicine; Emergency Provider Family Medicine; PCP Nurse Practitioner Family; Visit Provider Internal Medicine
PROC: 0DJ08ZZ Inspection of Upper Intestinal Tract, Via Natural or Artificial Opening Endoscopic (ICD-10-PCS; CPT 43235; principal; 2020-11-17 07:50)
DX: C15.5 Malignant neoplasm of lower third of esophagus (principal); C79.9 Secondary malignant neoplasm of unspecified site; K22.2 Esophageal obstruction; R13.10 Dysphagia, unspecified; R11.10 Vomiting, unspecified; M89.9 Disorder of bone, unspecified; E86.0 Dehydration; I10 Essential (primary) hypertension; E78.2 Mixed hyperlipidemia; E11.40 Type 2 diabetes mellitus with diabetic neuropathy, unspecified; Z87.11 Personal history of peptic ulcer disease; Z79.84 Long term (current) use of oral hypoglycemic drugs
CPT/HCPCS: 36415; 36416; 43235; 71260; 74177; 80053; 82962; 83735; 85025; 96360; 96361; 99205; 99285; C9113; J0330; J1100; J1170; J2270; J2405; J3010; J3490; J7030; J7799; Q9967; T1015-U1

== ENCOUNTER 2020-12-07 06:19 | Outpatient (RCR) | payer MEDICARE, SELFPAY ==
--- NOTE | 2020-11-22 | CT_ITS ---
Radiation Therapy Planning CT images; total exam DLP: 592.28 mGy-cm MTDD
--- NOTE | 2020-11-26 08:51 | ONCRAD TMN_ITS ---
Radiation Oncology Treatment Management Note Patient Name: Kathya Wu Date of : 1945 Date of Service: 11/26/2020 Attending Physician: Esvin Patel M.D. 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 He presented to his primary care physician in September with the complaint of dysphagia and a 20 pound weight loss. An esophagogastroduodenoscopy was performed on October 12, 2020 identifying a malignant appearing stricture at the esophageal cardia. 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 He has been prescribed carboplatin (AUC 2) and paclitaxel (50 mg/m2) weekly during radiotherapy. Upon review of systems, he denied any complaints related to radiotherapy. On physical examination, the patient weighed 144 lbs. His temperature was 98.5 ???F with a blood pressure of 96/60 mmHg. His pulse was 85 bpm and the respiratory rate was 18. No erythema within the treatment sanon. Continue esophageal radiotherapy as prescribed. Signed by: Dr. Esvin Patel 11/26/2020 8:49:34 AM
[2020-11-26 09:05] LABS: Basophils % 0.1 %; Hematocrit 32.4 % (42.0-52.0); Hemoglobin 10.1 g/dL (11.7-16.6); Lymphocytes # 0.9 10^3/uL (0.8-4.8); Lymphocytes % 11.9 %; Mean Corpuscular HGB Conc 31.2 g/dL (30.0-36.0); Mean Corpuscular Volume 89.8 fl (80-94); Mean Platelet Volume 10.7 fL (7.4-10.4); Monocytes # 0.2 10^3/uL (0.2-0.9); Monocytes % 2.6 %; Neutrophils # 6.22 10^3/uL (1.8-7.7); Neutrophils % 84.9 %; Nucleated Red Blood Cells % 0 %; Platelet Count 466 10^3/cmm (130-400); Red Blood Count 3.61 10^6/uL (4.1-5.3); Red Cell Distribution Width 13.6 % (12.1-15.1); White Blood Count 7.3 10^3/uL (4.0-10.0)
[2020-11-26 09:40] LABS: Alanine Aminotransferase 8 U/L (0-41); Albumin Level 4.1 g/dL (3.5-5.2); Alkaline Phosphatase 76 IU/L (40-130); Anion Gap 16.8 (5-19); Aspartate Amino Transferase 9 U/L (0-40); Blood Urea Nitrogen 25 mg/dL (8-23); Calcium 10.2 mg/dL (8.5-10.5); Carbon Dioxide 26 mmol/L (22-29); Chloride 94 mmol/L (98-107); Globulin 3.6 g/dL (1.3-4.6); Glucose 232 mg/dL (65-115); Osmolality Calculated 284 mOsm/kg (285-295); Potassium 5.8 mmol/L (3.5-5.1); Sodium 131 mmol/L (136-145); Total Bilirubin 0.4 mg/dL (0.15-1.2); Total Protein 7.7 g/dL (6.6-8.7)
[2020-11-26] MEDS: sodium chloride 0.9% 250 ML 75 ML IV (10:21)
[2020-11-26] MEDS: palonosetron 0.25 mg/5 mL SDV IV (10:21)
[2020-11-26] MEDS: famotidine 20 mg/2 mL INJ IVP (10:22)
[2020-11-26] MEDS: diphenhydrAMINE 50 mg/mL SDV 1mL 25 MG IV (10:24)
[2020-11-26 10:51] LABS: Potassium 5.8 mmol/L (3.5-5.1)
[2020-12-03 09:45] LABS: Basophils % 0.2 %; Hematocrit 31.9 % (42.0-52.0); Hemoglobin 10.1 g/dL (11.7-16.6); Lymphocytes # 0.6 10^3/uL (0.8-4.8); Lymphocytes % 10.6 %; Mean Corpuscular HGB Conc 31.7 g/dL (30.0-36.0); Mean Corpuscular Hemoglobin 28.2 pg (28.0-34.0); Mean Corpuscular Volume 89.1 fl (80-94); Mean Platelet Volume 9.6 fL (7.4-10.4); Monocytes # 0.1 10^3/uL (0.2-0.9); Monocytes % 2.4 %; Neutrophils # 5.04 10^3/uL (1.8-7.7); Neutrophils % 86.3 %; Nucleated Red Blood Cells % 0 %; Platelet Count 434 10^3/cmm (130-400); Red Blood Count 3.58 10^6/uL (4.1-5.3); Red Cell Distribution Width 13.6 % (12.1-15.1); White Blood Count 5.8 10^3/uL (4.0-10.0)
[2020-12-03 10:07] LABS: Alanine Aminotransferase 7 U/L (0-41); Albumin Level 4.1 g/dL (3.5-5.2); Alkaline Phosphatase 78 IU/L (40-130); Anion Gap 19.2 (5-19); Aspartate Amino Transferase 8 U/L (0-40); Blood Urea Nitrogen 29 mg/dL (8-23); Carbon Dioxide 24 mmol/L (22-29); Chloride 92 mmol/L (98-107); Globulin 3.4 g/dL (1.3-4.6); Glucose 240 mg/dL (65-115); Osmolality Calculated 282 mOsm/kg (285-295); Potassium 6.2 mmol/L (3.5-5.1); Sodium 129 mmol/L (136-145); Total Bilirubin 0.5 mg/dL (0.15-1.2); Total Protein 7.5 g/dL (6.6-8.7)
--- NOTE | 2020-12-03 11:09 | ONCRAD TMN_ITS ---
Radiation Oncology Treatment Management Note Patient Name: Kathya Wu Date of : 1945 Date of Service: 12/03/2020 Attending Physician: Esvin Patel M.D. 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 He presented to his primary care physician in September with the complaint of dysphagia and a 20 pound weight loss. An esophagogastroduodenoscopy was performed on October 12, 2020 identifying a malignant appearing stricture at the esophageal cardia. 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 The patient has received 12 Gy of a prescribed 50 [place] delivered with an intensity modulated radiotherapy plan utilizing a step and shoot treatment technique. He has been prescribed carboplatin (AUC 2) and paclitaxel (50 mg/m2) weekly during radiotherapy. Upon review of systems, he denied any complaints related to radiotherapy. On physical examination, the patient weighed 141 lbs. His temperature was 97.5 ???F with a blood pressure of 95/65 mmHg. His pulse was 90 bpm and the respiratory rate was 18. No erythema within the treatment sanon. Continue esophageal radiotherapy as planned. Signed by: Dr. Esvin Patel 12/03/2020 11:07:54 AM
[2020-12-03] MEDS: famotidine 20 mg/2 mL INJ IVP (12:24)
[2020-12-03] MEDS: diphenhydrAMINE 50 mg/mL SDV 1mL 25 MG IV (12:25)
[2020-12-03] MEDS: palonosetron 0.25 mg/5 mL SDV IV (12:26)
[2020-12-03] MEDS: sodium chloride 0.9% 500 ML 999 ML IV (15:00)
[2020-12-03 16:14] LABS: Magnesium 1.7 mg/dL (1.7-2.3)
--- NOTE | 2020-12-14 16:20 | ONC FU_ITS ---
[facility] Patient Note Patient: Kathya Wu Unit #: [id number]: 1945 Dictated By: Bharathi PottsDate of Visit: Dec 03, 2020 Onc MED Follow-Up/Prog Note Chief Complaint: Esophageal cancer History of Present Illness: Mr. Wu is a 75-year-old gentleman with about a 2 month history of progressive dysphagia. He underwent EGD on October 12, 2020 which showed a severe, malignant appearing mass at the esophageal cardia. Intrinsic stenosis was noted, the stenosis was not traversed. A partially obstructing, large sized, friable, fungating, circumferential ulcerated mass was seen and a biopsy was obtained. The biopsy confirmed invasive squamous cell carcinoma. Mr Wu underwent CT scan of chest abdomen pelvis on October 12, 2020 which showed distal esophageal wall thickening highly suspicious for neoplasm. And this extends over the length of 3.7 cm with eccentric thickening of the wall greatest on the left at 2 cm. And also noted eccentric rectal wall thickening, greatest on the left measuring up to 1.5 cm. Correlate for possible rectal mass, no metastatic disease to the liver or adrenal gland or lungs. There are few mildly prominent lymph nodes within the mediastinum and GE junction but these are not significantly enlarged as per the criteria. As per patient he underwent colonoscopy in 2018, it was unremarkable. On October 31, 2020 Mr. Vera underwent flexible sigmoidoscopy without biopsy as well as placement of a PowerPort in left subclavian vein per Dr. Lee at [facility]. The operative report reported diverticulosis in the sigmoid colon with no rectal masses and placement of the PowerPort in the left subclavian vein. PET/CT imaging from 11/10/2020 reported a 5 cm length of abnormal activity in the distal thoracic esophagus with an SUV of 17.9 representing the known primary malignancy. There were no suspicious mediastinal or upper abdominal adenopathy present. 2 sites of active osseous metastatic disease are present in the proximal left femur and right ischium. Mr. Wu was seen by Dr. Patel in radiation oncology for neoadjuvant radiotherapy. Patient has 40+ year history of smoking about pack a day and quit about 10 years ago. He also has history of alcohol abuse and now follows alcohol Anonymous, quit alcohol about 4 years ago. No family history of GI malignancy. Patient also has history of iron deficiency in the recent past as per patient he was prescribed oral iron, which he could not tolerate and stopped taking. Mr Wu was seen by Dr. Mirza and recommended to pursue weekly carboplatin paclitaxel with daily radiation. He began his first dose on November 26, 2020 and has tolerated it well. Mr. Wu is here today for consideration of week 2 concurrent carboplatin paclitaxel and radiation therapy. He has no new concerns today. States overall he feels pretty good. Swelling is still bit of an issue but states he thinks it is no worse. He denies any fever or chills. He denies any mouth, sore throat. He denies any nausea or vomiting. He states he does have some trouble sleeping after taking steroids but that is just temporary. He denies any bowel or bladder changes. He states he is not had any persistent neuropathy symptoms. He does confirm that he take his steroids this morning as directed for premedication prior to the paclitaxel. His ECOG is 0. 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 Medications: Atorvastatin Calcium 1 Tablet (of 20 mg) Oral daily Gabapentin 1 Capsule (of 100 mg) Oral b.i.d. glipiZIDE ER 1 Tablet (of 2.5 mg) Tablet SR 24 HR Oral daily Glucophage 1 Tablet (of 1000 mg) Oral b.i.d. Lisinopril-hydroCHLOROthiazide 1 Tablet (of 20-12.5 mg) Oral daily Magnesium 1 Tablet (of 250 mg) Oral b.i.d. Sklclcfq-Cvairdvau-SP 4 Drop(s) (of 1 %) Suspension Otic t.i.d. Pantoprazole Sodium 1 Tablet (of 40 mg) Tablet, enteric coated Oral daily traMADol HCl 1 Tablet (of 50 mg) Oral PRN Zofran ODT 1 Tablet (of 8 mg) Tablet Dispersable Oral PRN Family History: Mr. Wu's mother at age 98. Mr. Wu's father at age 73. Mr. Wu has 1 brother who is . He has 1 sister who is . Social History: Mr. Wu is . Mr. Wu quit smoking 10 years ago but had smoked 1.0 pack/day for 49 years. He quit drinking 4 years ago. Review Of Symptoms: <See Above> Vital Signs: Performed on Dec 03, 2020 11:27 Height - 67.00 in Weight - 141.4 lbs BSA - 1.75 sq.m BMI - 22.15 Temperature - 97.3 F (LOW) Pulse - 97 /min Respiration - 18 /min BP - 87/56 mm(hg) (LOW) O2 Sat - 93 % (LOW) Pain - 0 Fatigue - 0 Performed on Dec 03, 2020 10:56 Height - 67.00 in Weight - 141.4 lbs Temperature - 97.5 F Pulse - 90 /min Respiration - 18 /min BP - 95/65 mm(hg) O2 Sat - 96 % Pain - 0 Performed on Dec 03, 2020 10:56 BMI - 22.147 kg/m2,0 - Fully active, able to carry on all predisease activities without restrictions. (ECOG) Physical Examination: Constitutional Alert, oriented, no acute distress. Skin pink, warm and dry. Head Normocephalic; atraumatic. Eyes Conjunctivae and sclerae are clear and without icterus. Pupils are reactive and equal. ENMT No oral exudates, ulcers, masses, thrush or mucositis. Oropharynx clear. Tongue normal. Neck Supple without masses or thyromegaly. No jugular venous distension. Hematologic/Lymphatic No petechiae or purpura. No tender or palpable lymph nodes in the cervical or supraclavicular areas. Respiratory Lungs are clear to auscultation without rhonchi or wheezing. Cardiovascular Regular rate and rhythm of heart without murmurs,clicks, gallops or rubs. Chest Left chest wall PowerPort placement site is unremarkable. Abdomen Non-tender, non-distended, no masses or ascites. Good bowel sounds noted in all quads. No guarding or rebound tenderness. No pulsatile masses. Back/Spine Non-tender to palpation. Extremities No visible deformities, no cyanosis, clubbing or edema. Musculoskeletal No tenderness or swelling, normal range of motion without obvious weakness. Integumentary No rashes or lesions. Neurologic No sensory or motor deficits, normal cerebellar function, normal gait. Psychiatric Alert and oriented times three. Coherent speech. Verbalizes understanding of our discussions today. 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 History of alcohol abuse, quit 4 years ago now follow alcohol Anonymous Iron deficiency anemia, history of Plan/Problems Addressed at this Visit: 1. 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 Lee in the morning., His CT scan of chest abdomen pelvis showed distal esophageal wall thickening and there are few mildly prominent lymph nodes in mediastinum and GE junction but these are not significantly large as per criteria but no evidence of metastatic disease to the liver or adrenal gland or lungs but there is a concern about rectal mass/wall thickening, as per patient he had follow-up colonoscopy done in 2018 and he was told it was unremarkable. On October 31, 2020 Mr. Vera underwent flexible sigmoidoscopy without biopsy as well as placement of a PowerPort in left subclavian vein per Dr. Lee at [facility]. The operative report reported diverticulosis in the sigmoid colon with no rectal masses and placement of the PowerPort in the left subclavian vein. PET/CT imaging from 11/10/2020 reported a 5 cm length of abnormal activity in the distal thoracic esophagus with an SUV of 17.9 representing the known primary malignancy. There were no suspicious mediastinal or upper abdominal adenopathy present. 2 sites of active osseous metastatic disease are present in the proximal left femur and right ischium. Mr. Wu was seen by Dr. Patel in radiation oncology for neoadjuvant radiotherapy as there was no evidence of distance metastatic disease. His current plan of care is neoadjuvant combined chemoradiation with weekly Carboplatin/Taxol and then referral for surgical evaluation. 1. Proceed with week 2 carboplatin paclitaxel. 2. Steroid compliance confirmed. 3. Today's labs reviewed in detail discussed with Mr. Wu and a copy was given to him. Do BC 5.8, hemoglobin 10.1, platelets 4 35,000 ANC is 5040. Potassium 6.2 random glucose 240 creatinine is 1.2 LFTs are normal. 4. He received extra hydration today for the hyperkalemia. His magnesium level was reported at 1.7. 5. We will have him stop his lisinopril and HCTZ at this point due to hypotension and hyperkalemia. 6. We will plan to have Mr. Wu return in 1 week with CBC CMP. He will be due for week 3 chemotherapy with daily radiation. 7. His instructed to contact us in interim should questions or problems arise. Signed By: Bharathi Potts-, AOCNP Khloe Mirza MD <<Signature on File>>
== END 2020-12-09 23:59 | disposition home or self-care (01) ==
LOC: ONCMED 06:19
PROVIDERS: Internal Medicine Hematology & Oncology; Nurse Practitioner; Absent Provider Radiology Radiation Oncology; PCP Nurse Practitioner Family; Visit Provider Radiology Radiation Oncology
DX: Z51.0 Encounter for antineoplastic radiation therapy (principal); Z51.11 Encounter for antineoplastic chemotherapy; C15.5 Malignant neoplasm of lower third of esophagus; R13.10 Dysphagia, unspecified; R63.4 Abnormal weight loss; E11.9 Type 2 diabetes mellitus without complications; D50.9 Iron deficiency anemia, unspecified; F10.21 Alcohol dependence, in remission; Z79.84 Long term (current) use of oral hypoglycemic drugs; Z87.891 Personal history of nicotine dependence
CPT/HCPCS: 77300; 77301; 77334; 77336; 77338; 77386; 77470; 80053; 83735; 84132; 85025; 96367; 96375; 96413; 96417; 99215; J1100; J1200; J2469; J3490; J7030; J7040; J7050; J9045; J9267; Q9967

== ENCOUNTER 2021-01-01 06:36 | Outpatient (RCR) | payer MEDICARE, SELFPAY ==
[2020-12-10 10:17] LABS: Basophils % 0.2 %; Hematocrit 30.1 % (42.0-52.0); Hemoglobin 9.3 g/dL (11.7-16.6); Lymphocytes # 0.3 10^3/uL (0.8-4.8); Mean Corpuscular HGB Conc 30.9 g/dL (30.0-36.0); Mean Corpuscular Hemoglobin 27.8 pg (28.0-34.0); Mean Corpuscular Volume 90.1 fl (80-94); Mean Platelet Volume 9.5 fL (7.4-10.4); Monocytes # 0.2 10^3/uL (0.2-0.9); Monocytes % 3.2 %; Neutrophils # 4.23 10^3/uL (1.8-7.7); Neutrophils % 89.2 %; Nucleated Red Blood Cells % 0 %; Platelet Count 330 10^3/cmm (130-400); Red Blood Count 3.34 10^6/uL (4.1-5.3); Red Cell Distribution Width 13.7 % (12.1-15.1); White Blood Count 4.7 10^3/uL (4.0-10.0)
[2020-12-10 10:32] LABS: Alanine Aminotransferase 9 U/L (0-41); Albumin Level 3.9 g/dL (3.5-5.2); Alkaline Phosphatase 81 IU/L (40-130); Aspartate Amino Transferase 9 U/L (0-40); Blood Urea Nitrogen 19 mg/dL (8-23); Calcium 8.9 mg/dL (8.5-10.5); Carbon Dioxide 24 mmol/L (22-29); Chloride 96 mmol/L (98-107); Globulin 3.1 g/dL (1.3-4.6); Glucose 319 mg/dL (65-115); Osmolality Calculated 289 mOsm/kg (285-295); Sodium 132 mmol/L (136-145); Total Bilirubin 0.3 mg/dL (0.15-1.2)
[2020-12-10] MEDS: famotidine 20 mg/2 mL INJ IVP (11:34)
[2020-12-10] MEDS: sodium chloride 0.9% 250 ML 75 ML IV (11:34)
[2020-12-10] MEDS: diphenhydrAMINE 50 mg/mL SDV 1mL 25 MG IV (11:35)
[2020-12-10] MEDS: palonosetron 0.25 mg/5 mL SDV IV (11:36)
--- NOTE | 2020-12-10 16:25 | ONCRAD TMN_ITS ---
Radiation Oncology Weekly Treatment Management Patient: Katyha Wu> MR#: [id number] : 1945> Attending Physician: Dr. Gustavo Rosen Date of Service: 12/10/2020 Referring Physician(s) : Khloe Mirza Diagnosis: C15.5 - Malignant neoplasm of lower third of esophagus, Diagnosed 10/22/2020 (Active) Stage II, T3, N0, M0, GX Radiotherapy to date: Course: Esophagus 2020, Treatment Site: Esophageal Ca, Ref. ID: [id number], Energy: 6X, Dose/Fx (cGy): 200, #Fx: , Dose Correction (cGy): 0, Total Dose (cGy): 2,000, Start Date: 11/26/2020, Elapsed Days: 11 Reason for visit: The patient is being seen today as part of their regularly scheduled weekly on treatment visits to assess for acute toxicities from radiotherapy. Review of Systems: Doing well overall Eating all food orally but limited to liquids and ???mush??? in the dye blender. No PEG placed. Active with usual ADLs at home including mowing the lawn and refinishing furniture. No Nausea or vomiting. He has to crush pills to go down. Vital Signs: Physical Exam: omitted Imaging: Radiation therapy imaging related to accurate target localization (i.e. KV, MV and CBCT) was reviewed. Appropriate changes, if any, were made to ensure treatment accuracy. Plan: Good tolerance of treatment. Will continue as planned. Signed by: Dr. Gustavo Rosen 12/10/2020 4:24:04 PM
[2020-12-17 11:47] LABS: Basophils % 0.6 %; Eosinophils % 0.6 %; Hematocrit 28.7 % (42.0-52.0); Hemoglobin 9.1 g/dL (11.7-16.6); Lymphocytes # 0.7 10^3/uL (0.8-4.8); Lymphocytes % 20.4 %; Mean Corpuscular HGB Conc 31.7 g/dL (30.0-36.0); Mean Corpuscular Hemoglobin 28.6 pg (28.0-34.0); Mean Corpuscular Volume 90.3 fl (80-94); Mean Platelet Volume 8.6 fL (7.4-10.4); Monocytes # 0.4 10^3/uL (0.2-0.9); Monocytes % 11.1 %; Neutrophils # 2.29 10^3/uL (1.8-7.7); Neutrophils % 66.7 %; Nucleated Red Blood Cells % 0 %; Platelet Count 223 10^3/cmm (130-400); Red Blood Count 3.18 10^6/uL (4.1-5.3); Red Cell Distribution Width 14.1 % (12.1-15.1); White Blood Count 3.4 10^3/uL (4.0-10.0)
--- NOTE | 2020-12-17 11:50 | ONCRAD TMN_ITS ---
Radiation Oncology Treatment Management Note Patient Name: Kathya uW Date of : 1945 Date of Service: 12/17/2020 Attending Physician: Esvin Patel M.D. 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 He presented to his primary care physician in September with the complaint of dysphagia and a 20 pound weight loss. An esophagogastroduodenoscopy was performed on October 12, 2020 identifying a malignant appearing stricture at the esophageal cardia. A biopsy of the GE junction mass diagnosed an invasive squamous cell carcinoma (HER-2 analysis was not performed - no residual tumor identified in the block). The patient has received 28 Gy of a prescribed 50 Santo delivered with an intensity modulated radiotherapy plan utilizing a step and shoot treatment technique. He has been prescribed carboplatin (AUC 2) and paclitaxel (50 mg/m2) weekly during radiotherapy. Upon review of systems, he denied any complaints related to radiotherapy. On physical examination, the patient weighed 137 lbs. His temperature was 98 ???F with a blood pressure of 106/69 mmHg. His pulse was 90 bpm and the respiratory rate was 18. No erythema within the treatment sanon. Continue esophageal radiotherapy as prescribed. I have requested a dietary consultation. Signed by: Dr. Esvin Patel 12/17/2020 11:49:25 AM
[2020-12-17 12:19] LABS: Alanine Aminotransferase 7 U/L (0-41); Albumin Level 3.8 g/dL (3.5-5.2); Alkaline Phosphatase 78 IU/L (40-130); Anion Gap 15.7 (5-19); Aspartate Amino Transferase 12 U/L (0-40); Blood Urea Nitrogen 19 mg/dL (8-23); Calcium 9.1 mg/dL (8.5-10.5); Carbon Dioxide 26 mmol/L (22-29); Chloride 102 mmol/L (98-107); Globulin 2.8 g/dL (1.3-4.6); Glucose 64 mg/dL (65-115); Osmolality Calculated 288 mOsm/kg (285-295); Potassium 4.7 mmol/L (3.5-5.1); Sodium 139 mmol/L (136-145); Total Bilirubin 0.2 mg/dL (0.15-1.2); Total Protein 6.6 g/dL (6.6-8.7)
[2020-12-18] MEDS: sodium chloride 0.9% 250 ML 75 ML IV (10:26)
[2020-12-18] MEDS: famotidine 20 mg/2 mL INJ IVP (10:26)
[2020-12-18] MEDS: diphenhydrAMINE 50 mg/mL SDV 1mL 25 MG IV (10:27)
[2020-12-18] MEDS: palonosetron 0.25 mg/5 mL SDV IV (10:30)
--- NOTE | 2020-12-18 17:16 | ONC FU_ITS ---
Dr. Mirza follow up note Patient: Kathya Wu Unit #: [id number]: 1945 Dicatated By: Khloe Mirza M.D.Date of Visit:Dec 18, 2020 Onc Med Follow-up/Prog Note History of Present Illness: Mr. Wu is a 75-year-old gentleman with about a 2 month history of progressive dysphagia. He underwent EGD on October 12, 2020 which showed a severe, malignant appearing mass at the esophageal cardia. Intrinsic stenosis was noted, the stenosis was not traversed. A partially obstructing, large sized, friable, fungating, circumferential ulcerated mass was seen and a biopsy was obtained. The biopsy confirmed invasive squamous cell carcinoma. Mr Wu underwent CT scan of chest abdomen pelvis on October 12, 2020 which showed distal esophageal wall thickening highly suspicious for neoplasm. And this extends over the length of 3.7 cm with eccentric thickening of the wall greatest on the left at 2 cm. And also noted eccentric rectal wall thickening, greatest on the left measuring up to 1.5 cm. Correlate for possible rectal mass, no metastatic disease to the liver or adrenal gland or lungs. There are few mildly prominent lymph nodes within the mediastinum and GE junction but these are not significantly enlarged as per the criteria. As per patient he underwent colonoscopy in 2018, it was unremarkable. On October 31, 2020 Mr. Vera underwent flexible sigmoidoscopy without biopsy as well as placement of a PowerPort in left subclavian vein per Dr. Lee at [facility]. The operative report reported diverticulosis in the sigmoid colon with no rectal masses and placement of the PowerPort in the left subclavian vein. PET/CT imaging from 11/10/2020 reported a 5 cm length of abnormal activity in the distal thoracic esophagus with an SUV of 17.9 representing the known primary malignancy. There were no suspicious mediastinal or upper abdominal adenopathy present. 2 sites of active osseous metastatic disease are present in the proximal left femur and right ischium. Mr. Wu was seen by Dr. Patel in radiation oncology for neoadjuvant radiotherapy. Patient has 40+ year history of smoking about pack a day and quit about 10 years ago. He also has history of alcohol abuse and now follows alcohol Anonymous, quit alcohol about 4 years ago. No family history of GI malignancy. Patient also has history of iron deficiency in the recent past as per patient he was prescribed oral iron, which he could not tolerate and stopped taking. On combined chemoradiation with weekly carboplatin/Taxol started on November 26, 2020 Came for follow-up, denies any specific complaint except generalized weakness and fatigue but now improving, denies any fever or chills denies any nausea or vomiting denies any diarrhea constipation denies any hemoptysis or hematemesis denies any jaundice denies any peripheral neuropathy, tolerating combined chemoradiation with weekly carboplatin/Taxol well otherwise Medications: Atorvastatin Calcium 1 Tablet (of 20 mg) Oral daily, Gabapentin 1 Capsule (of 100 mg) Oral b.i.d., glipiZIDE ER 1 Tablet (of 2.5 mg) Tablet SR 24 HR Oral daily, Magnesium 1 Tablet (of 250 mg) Oral b.i.d., Cfnqgjov-Mvsstrsdl-WH 4 Drop(s) (of 1 %) Suspension Otic t.i.d., Pantoprazole Sodium 1 Tablet (of 40 mg) Tablet, enteric coated Oral daily, traMADol HCl 1 Tablet (of 50 mg) Oral PRN, Zofran ODT 1 Tablet (of 8 mg) Tablet Dispersable Oral PRN Allergies: No Known Allergies. Review of Systems: Review of Systems is not available for this patient. Vital Signs: Performed on Dec 18, 2020 13:56 Height - 67.00 in Weight - 137 lbs BSA - 1.72 sq.m BMI - 21.46 Temperature - 97.4 F (LOW) Pulse - 113 /min (HIGH) Respiration - 18 /min BP - 122/66 mm(hg) O2 Sat - 97 % Pain - 3 Fatigue - 2 Performance Status: 0 - Fully active, able to carry on all predisease activities without restrictions. (ECOG) Physical Examination: ENMT - No mouth sores, no thrush, no jaundice, Respiratory - Lungs are clear to auscultation, Cardiovascular - Regular rate and rhythm of heart, Abdomen - Soft, bowel sounds present, Extremities - No visible edema. Lab/Imaging: Test performed on Dec 17, 2020 11:36 Sodium 139 mmol/L Potassium 4.7 mmol/L Chloride 102 mmol/L CO2 26 mmol/L Anion Gap 15.7 BUN 19 mg/dL Creatinine 0.7 mg/dL Cr Clearance (Est) 85.5400 mL/min Glucose 64 mg/dL Osmolality - Calculated 288 mOsm/kg Calcium 9.1 mg/dL Protein, Total 6.6 g/dL Albumin 3.8 g/dL Globulin 2.8 g/dL Bilirubin, Total 0.2 mg/dL ALT (SGPT) 7 U/L AST (SGOT) 12 U/L Alkaline Phosphatase 78 IU/L WBC 3.4 10 3/uL RBC 3.18 10 6/uL HGB 9.1 g/dL HCT 28.7 % MCV 90.3 fl MCH 28.6 pg MCHC 31.7 g/dL RDW 14.1 % Platelet Count 223 10 3/cmm MPV 8.6 fL Neutrophils 2.29 10 3/uL Lymphocytes 0.7 10 3/uL Monocytes 0.4 10 3/uL Eosinophils 0.0 10 3/uL Basophils 0.0 10 3/uL Neutrophil % 66.7 % Lymphocyte % 20.4 % Monocyte % 11.1 % Eosinophil % 0.6 % Basophils % 0.6 % NRBC % 0 % Test performed on Dec 03, 2020 09:34 Magnesium 1.7 mg/dL Impression: 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 History of alcohol abuse, quit 4 years ago now follow alcohol Anonymous Iron deficiency anemia, history of Plan: Discussed with patient regarding his labs white blood count 3.4 hemoglobin 9.1 hematocrit 28.7 platelets 223,000 CMP within normal limits Clinically, patient doing well with no new signs symptoms, tolerating combined chemoradiation well we will proceed with next weekly dose of carbo/Taxol today and then he will return to clinic in 1 week with CBC CMP As far as anemia is concerned probably multifactorial including iron deficiency, patient was offered parenteral iron, he has taken in the past but patient wants to try oral iron although he has history of oral iron intolerance, patient said if he could not tolerate then he will consider parenteral iron in the meantime we will continue to monitor his blood counts. Patient has appointment with GI surgical oncologist at [place] on January 09, 2021 Signed By: Khloe Mirza M.D. <<Signature on File>>
[2020-12-24 09:29] LABS: Hematocrit 25.5 % (42.0-52.0); Lymphocytes # 0.1 10^3/uL (0.8-4.8); Lymphocytes % 4.6 %; Mean Corpuscular HGB Conc 31.4 g/dL (30.0-36.0); Mean Corpuscular Hemoglobin 28.5 pg (28.0-34.0); Mean Corpuscular Volume 90.7 fl (80-94); Mean Platelet Volume 9.4 fL (7.4-10.4); Monocytes # 0.1 10^3/uL (0.2-0.9); Monocytes % 2.3 %; Neutrophils # 2.44 10^3/uL (1.8-7.7); Neutrophils % 92.7 %; Nucleated Red Blood Cells % 0 %; Platelet Count 170 10^3/cmm (130-400); Red Blood Count 2.81 10^6/uL (4.1-5.3); Red Cell Distribution Width 14.5 % (12.1-15.1); White Blood Count 2.6 10^3/uL (4.0-10.0)
--- NOTE | 2020-12-24 09:44 | ONCRAD TMN_ITS ---
Radiation Oncology Treatment Management Note Patient Name: Kathya Wu Date of : 1945 Date of Service: 12/24/2020 Attending Physician: Esvin Patel M.D. 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 He presented to his primary care physician in September with the complaint of dysphagia and a 20 pound weight loss. An esophagogastroduodenoscopy was performed on October 12, 2020 identifying a malignant appearing stricture at the esophageal cardia. A biopsy of the GE junction mass diagnosed an invasive squamous cell carcinoma (HER-2 analysis was not performed - no residual tumor identified in the block). The patient has received 38 Gy of a prescribed 50 Santo delivered with an intensity modulated radiotherapy plan utilizing a step and shoot treatment technique. He has been prescribed carboplatin (AUC 2) and paclitaxel (50 mg/m2) weekly during radiotherapy. Upon review of systems, he denied any complaints related to radiotherapy. He has noted an improvement in dysgeusia. On physical examination, the patient weighed 138 lbs. His temperature was 98 ???F and the blood pressure was 101/61 mmHg. His pulse was 98 bpm and the respiratory rate was 18. There was no erythema within the treatment sanon. Continue esophageal radiotherapy as planned. Signed by: Dr. Esvin Patel 12/24/2020 9:43:57 AM
[2020-12-24 09:49] LABS: Alanine Aminotransferase 9 U/L (0-41); Albumin Level 3.7 g/dL (3.5-5.2); Alkaline Phosphatase 73 IU/L (40-130); Anion Gap 16.9 (5-19); Aspartate Amino Transferase 10 U/L (0-40); Blood Urea Nitrogen 24 mg/dL (8-23); Calcium 8.9 mg/dL (8.5-10.5); Carbon Dioxide 24 mmol/L (22-29); Chloride 99 mmol/L (98-107); Globulin 2.8 g/dL (1.3-4.6); Glucose 317 mg/dL (65-115); Osmolality Calculated 296 mOsm/kg (285-295); Potassium 4.9 mmol/L (3.5-5.1); Sodium 135 mmol/L (136-145); Total Bilirubin 0.3 mg/dL (0.15-1.2); Total Protein 6.5 g/dL (6.6-8.7)
[2020-12-24] MEDS: diphenhydrAMINE 50 mg/mL SDV 1mL 25 MG IV (12:49)
[2020-12-24] MEDS: famotidine 20 mg/2 mL INJ IVP (12:50)
[2020-12-24] MEDS: sodium chloride 0.9% 250 ML 75 ML IV (12:51)
[2020-12-24] MEDS: palonosetron 0.25 mg/5 mL SDV IV (12:51)
--- NOTE | 2020-12-31 13:52 | ONCRAD TMN_ITS ---
Radiation Oncology Treatment Management Note Patient Name: Kathya Wu Date of : 1945 Date of Service: 12/31/2020 Attending Physician: Esvin Patel M.D. 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 He presented to his primary care physician in September with the complaint of dysphagia and a 20 pound weight loss. An esophagogastroduodenoscopy was performed on October 12, 2020 identifying a malignant appearing stricture at the esophageal cardia. A biopsy of the GE junction mass diagnosed an invasive squamous cell carcinoma (HER-2 analysis was not performed - no residual tumor identified in the block). The patient has received 48 Gy of a prescribed 50 Santo delivered with an intensity modulated radiotherapy plan utilizing a step and shoot treatment technique. He has been prescribed carboplatin (AUC 2) and paclitaxel (50 mg/m2) weekly during radiotherapy. Upon review of systems, he described odynophagia. On physical examination, the patient weighed 131 lbs. His temperature was 97.5 ???F and the blood pressure was 111/70 mmHg. His pulse was 102 bpm and the respiratory rate was 20. Continue esophageal radiotherapy as prescribed. I will prescribe oxycodone elixir for odynophagia. MiraLAX (generic) was also recommended for constipation prophylaxis. Signed by: Dr. Esvin Patel 12/31/2020 1:50:40 PM
--- NOTE | 2021-01-01 13:11 | N.ONRD TS_ITS ---
Radiation OncologyTreatment Summary Patient Name: Kathya Wu Date of : 1945 Date of Service: 01/01/2021 Attending Physician: Esvin Patel M.D. Kathya Wu has completed esophageal radiotherapy for the management of a clinical stage II (T3N0) squamous cell carcinoma of the distal esophageal cancer. He presented to his primary care physician in September with the complaint of dysphagia and a 20 pound weight loss. An esophagogastroduodenoscopy was performed on October 12, 2020 identifying a malignant appearing stricture at the esophageal cardia. A biopsy of the GE junction mass diagnosed an invasive squamous cell carcinoma (HER-2 analysis was not performed - no residual tumor identified in the block). Daily radiotherapy was administered between the dates of November 26, 2020 through January 01, 2021. A prescribed dose of 50 Gy was delivered in 25 fractions encompassing 37 elapsed days. The esophageal tumor was treated utilizing an intensity modulated radiotherapy plan with a step and shoot treatment technique. A total of seven portal sanno were designed with gantry angles of 80???. 120???, 150???, 170???, 200???, 220???, and 250???, respectively. The collimator was 0???. The field sizes spanned 8.5 cm x 14.5 cm to 10.6 cm x 14.8 cm. The SSD measured between 82.4 cm 89.2 cm. The ports delivered 176 MU, 174 MU, 145 MU, 137 MU, 201 MU, 136 MU, and 191 MU corresponding to the gantry angles described. Low energy photons were prescribed. All treatments were performed using the [employer] SL linear accelerator and an isocentric technique. The dose was calculated by Anisotropic Analytic Algorithm with the plan normalized to deliver 100% of the prescription dose to 95% of the planning target volume. The patient received weekly carboplatin (AUC 2) and paclitaxel (50 mg/m2) concurrent with radiotherapy under the supervision of Khloe Mirza M.D. Signed by: Dr. Esvin Patel 01/01/2021 1:11:16 PM
--- NOTE | 2021-01-07 12:28 | ONC FU_ITS ---
[facility] Patient Note Patient: Kathya Wu Unit #: [id number]: 1945 Dictated By: Bharathi PottsDate of Visit: Dec 24, 2020 Onc MED Follow-Up/Prog Note Chief Complaint: Esophageal cancer History of Present Illness: Mr. Wu is a 75-year-old gentleman with about a 2 month history of progressive dysphagia. He underwent EGD on October 12, 2020 which showed a severe, malignant appearing mass at the esophageal cardia. Intrinsic stenosis was noted, the stenosis was not traversed. A partially obstructing, large sized, friable, fungating, circumferential ulcerated mass was seen and a biopsy was obtained. The biopsy confirmed invasive squamous cell carcinoma. Mr Wu underwent CT scan of chest abdomen pelvis on October 12, 2020 which showed distal esophageal wall thickening highly suspicious for neoplasm. And this extends over the length of 3.7 cm with eccentric thickening of the wall greatest on the left at 2 cm. And also noted eccentric rectal wall thickening, greatest on the left measuring up to 1.5 cm. Correlate for possible rectal mass, no metastatic disease to the liver or adrenal gland or lungs. There are few mildly prominent lymph nodes within the mediastinum and GE junction but these are not significantly enlarged as per the criteria. As per patient he underwent colonoscopy in 2018, it was unremarkable. On October 31, 2020 Mr. Vera underwent flexible sigmoidoscopy without biopsy as well as placement of a PowerPort in left subclavian vein per Dr. Lee at [facility]. The operative report reported diverticulosis in the sigmoid colon with no rectal masses and placement of the PowerPort in the left subclavian vein. PET/CT imaging from 11/10/2020 reported a 5 cm length of abnormal activity in the distal thoracic esophagus with an SUV of 17.9 representing the known primary malignancy. There were no suspicious mediastinal or upper abdominal adenopathy present. 2 sites of active osseous metastatic disease are present in the proximal left femur and right ischium. Mr. Wu was seen by Dr. Patel in radiation oncology for neoadjuvant radiotherapy. Patient has 40+ year history of smoking about pack a day and quit about 10 years ago. He also has history of alcohol abuse and now follows alcohol Anonymous, quit alcohol about 4 years ago. No family history of GI malignancy. Patient also has history of iron deficiency in the recent past as per patient he was prescribed oral iron, which he could not tolerate and stopped taking. Mr Wu's current treatment plan is combined chemoradiation with weekly carboplatin/Taxol started on November 26, 2020. He has completed 4 weeks of Carboplatin/paclitaxel. He is here today for followup. He states overall he is doing good. He states Thursday or last week something broke and now can swallow much easier . He denied any bleeding. He has had no nausea or vomiting. He denies any hemoptysis or cough. He denies any shortness of breath. He states he has not had any chest pain but has had a few palpitations but states they are not bad . He states they are intermittent and he cannot determine a particular trigger for them. He states he thinks it may be related to his steroid premeds. He states his sugar is high with a steroid premeds and he does not worry too much about it because it comes down back to his normal within 24 to 36 hours after taking the steroids. He denies any pain. His ECOG is 0 as he states he has been working in the yard some. He states he has been mowing leaves and mulching. 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 Medications: Atorvastatin Calcium 1 Tablet (of 20 mg) Tablet Oral daily Ferrous Sulfate 1 Tablet (of 325 (65 Fe) mg) Tablet Oral daily Gabapentin 1 Capsule (of 100 mg) Oral b.i.d. glipiZIDE ER 1 Tablet (of 2.5 mg) Tablet SR 24 HR Oral daily Magnesium 1 Tablet (of 250 mg) Oral b.i.d. Wxpjqshr-Erkwmdtxp-HE 4 Drop(s) (of 1 %) Suspension Otic t.i.d. Pantoprazole Sodium 1 Tablet (of 40 mg) Tablet, enteric coated Oral daily traMADol HCl 1 Tablet (of 50 mg) Oral PRN Zofran ODT 1 Tablet (of 8 mg) Tablet Dispersable Oral PRN Family History: Mr. Wu's mother at age 98. Mr. Wu's father at age 73. Mr. Wu has 1 brother who is . He has 1 sister who is . Social History: Mr. Wu is . Mr. Wu quit smoking 10 years ago but had smoked 1.0 pack/day for 49 years. He quit drinking 4 years ago. Review Of Symptoms: <See Above> Vital Signs: Performed on Dec 24, 2020 09:31 Height - 67.00 in Weight - 138.0 lbs Temperature - 98.0 F Pulse - 98 /min Respiration - 18 /min BP - 101/61 mm(hg) O2 Sat - 98 % Pain - 3 Performed on Dec 24, 2020 09:31 BMI - 21.614 kg/m2,0 - Fully active, able to carry on all predisease activities without restrictions. (ECOG) Physical Examination: Constitutional Alert, oriented, no acute distress. Skin pink, warm and dry. Head Normocephalic; atraumatic. Eyes Conjunctivae and sclerae are clear and without icterus. Pupils are reactive and equal. ENMT No oral exudates, ulcers, masses, thrush or mucositis. Oropharynx clear. Tongue normal. Neck Supple without masses or thyromegaly. No jugular venous distension. Hematologic/Lymphatic No petechiae or purpura. No tender or palpable lymph nodes in the cervical or supraclavicular areas. Respiratory Lungs are clear to auscultation without rhonchi or wheezing. Cardiovascular Regular rate and rhythm of heart without murmurs,clicks, gallops or rubs. Chest Left chest wall PowerPort placement site is unremarkable. Abdomen Non-tender, non-distended, no masses or ascites. Good bowel sounds noted in all quads. No guarding or rebound tenderness. No pulsatile masses. Back/Spine Non-tender to palpation. Extremities No visible deformities, no cyanosis, clubbing or edema. Musculoskeletal No tenderness or swelling, normal range of motion without obvious weakness. Integumentary No rashes or lesions. Neurologic No sensory or motor deficits, normal cerebellar function, normal gait. Psychiatric Alert and oriented times three. Coherent speech. Verbalizes understanding of our discussions today. Laboratory:Test performed on Dec 24, 2020 12:22 Creatinine 0.3 mg/dL Cr Clearance (Est) 199.58 mL/min Test performed on Dec 24, 2020 08:55 Sodium 135 mmol/L Potassium 4.9 mmol/L Chloride 99 mmol/L CO2 24 mmol/L Anion Gap 16.9 BUN 24 mg/dL Glucose 317 mg/dL Osmolality - Calculated 296 mOsm/kg Calcium 8.9 mg/dL Protein, Total 6.5 g/dL Albumin 3.7 g/dL Globulin 2.8 g/dL Bilirubin, Total 0.3 mg/dL ALT (SGPT) 9 U/L AST (SGOT) 10 U/L Alkaline Phosphatase 73 IU/L WBC 2.6 10 3/uL RBC 2.81 10 6/uL HGB 8.0 g/dL HCT 25.5 % MCV 90.7 fl MCH 28.5 pg MCHC 31.4 g/dL RDW 14.5 % Platelet Count 170 10 3/cmm MPV 9.4 fL Neutrophils 2.44 10 3/uL Lymphocytes 0.1 10 3/uL Monocytes 0.1 10 3/uL Eosinophils 0.0 10 3/uL Basophils 0.0 10 3/uL Neutrophil % 92.7 % Lymphocyte % 4.6 % Monocyte % 2.3 % Eosinophil % 0.0 % Basophils % 0.0 % NRBC % 0 % Test performed on Dec 03, 2020 09:34 Magnesium 1.7 mg/dL Impression: 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 History of alcohol abuse, quit 4 years ago now follow alcohol Anonymous Iron deficiency anemia, history of Plan/Problems Addressed at this Visit: 1. 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 Lee in the morning., His CT scan of chest abdomen pelvis showed distal esophageal wall thickening and there are few mildly prominent lymph nodes in mediastinum and GE junction but these are not significantly large as per criteria but no evidence of metastatic disease to the liver or adrenal gland or lungs but there is a concern about rectal mass/wall thickening, as per patient he had follow-up colonoscopy done in 2018 and he was told it was unremarkable. On October 31, 2020 Mr. Vera underwent flexible sigmoidoscopy without biopsy as well as placement of a PowerPort in left subclavian vein per Dr. Lee at [facility]. The operative report reported diverticulosis in the sigmoid colon with no rectal masses and placement of the PowerPort in the left subclavian vein. PET/CT imaging from 11/10/2020 reported a 5 cm length of abnormal activity in the distal thoracic esophagus with an SUV of 17.9 representing the known primary malignancy. There were no suspicious mediastinal or upper abdominal adenopathy present. 2 sites of active osseous metastatic disease are present in the proximal left femur and right ischium. Mr. Wu was seen by Dr. Patel in radiation oncology for neoadjuvant radiotherapy as there was no evidence of distance metastatic disease. His current plan of care is neoadjuvant combined chemoradiation with weekly Carboplatin/Taxol and then referral for surgical evaluation. 1. Proceed with week 5 carboplatin paclitaxel. 2. Steroid compliance confirmed. 3. Today's labs reviewed in detail discussed with Mr. Wu and a copy was given to him. WBC 2.6, hemoglobin is 8.0, platelets 170,000, ANC is 2440. Potassium 4.9 random glucose 317 creatinine 0.7 and LFTs are normal. He states he has been eating really good. He states he had mac & cheese V8 and apple juice for dinner last night and take his steroids and that is why his blood sugar is elevated this morning. His blood pressure stable 101/81. 4. He refused insulin injection for his hyperglycemia today. 5. We will have him remain off the lisinopril and HCTZ at this point due to hypotension and hyperkalemia. 6. We will plan to have Mr. Wu return in 1 week with CBC CMP. He will be due for week 6 chemotherapy with daily radiation. 7. His instructed to contact us in interim should questions or problems arise. Signed By: Bharathi Potts-BARRON BENÍTEZ MD <<Signature on File>>
== END 2021-01-08 23:59 | disposition home or self-care (01) ==
LOC: ONCMED 06:36
PROVIDERS: Internal Medicine Hematology & Oncology; Nurse Practitioner; Absent Provider Radiology Radiation Oncology; PCP Nurse Practitioner Family; Visit Provider Radiology Radiation Oncology
DX: Z51.0 Encounter for antineoplastic radiation therapy (principal); Z51.11 Encounter for antineoplastic chemotherapy; C15.5 Malignant neoplasm of lower third of esophagus; R13.10 Dysphagia, unspecified; R63.4 Abnormal weight loss; E11.9 Type 2 diabetes mellitus without complications; Z79.84 Long term (current) use of oral hypoglycemic drugs; Z87.891 Personal history of nicotine dependence; F10.21 Alcohol dependence, in remission; Z86.2 Personal history of diseases of the blood and blood-forming organs and certain disorders involving the immune mechanism; Z79.52 Long term (current) use of systemic steroids
CPT/HCPCS: 36591; 77336; 77386; 80053; 85025; 96367; 96375; 96413; 96417; 99215; J1100; J1200; J2469; J3490; J7030; J7040; J7050; J9045; J9267